=== PATIENT | male | born 1990 | race Hispanic/Latino ===

== ENCOUNTER 2024-03-06 19:17 | Emergency (ER) | payer SELFPAY ==
[2024-03-06 19:55] LABS: #Basophils 0.03 10x3/uL (0.0-0.2); #Eosinophils Less than 0.03 10x3/uL (0.0-0.7); %Basophils 0.3 % (0.0-1.0); %Lymphocytes 10.1 % (21.0-51.0); %Monocytes 5.5 % (0.0-10.0); %Neutrophils 83.8 % (42.0-75.0); Hematocrit 45.2 % (42.0-52.0); Hemoglobin 15.5 g/dL (14.0-18.0); Mean Corpuscular HGB CONC 34.3 g/dL (32.0-36.0); Mean Corpuscular Hemoglobin 29.7 pg (27.0-31.0); Mean Corpuscular Volume 86.6 fL (78.0-98.0); Mean Platelet Volume 10.4 fL (7.4-10.4); Platelet Count 261 10x3/uL (130-400); Red Blood Cell (RBC) Count 5.22 mill/uL (4.70-6.10)
[2024-03-06 20:15] LABS: ALT (SGPT) 23 U/L (8-55); AST (SGOT) 34 U/L (5-34); Acetaminophen Less than 10 mcg/mL (Less than 10); Albumin 4.4 g/dL (3.5-5.0); Alcohol Less than 10.0 mg/dL (Less than 10); Alkaline Phosphatase 81 U/L (40-110); Anion Gap 19 mmol/L (10-20); BUN (Urea Nitrogen) 16 mg/dL (8.9-20.6); Bilirubin, Total 0.8 mg/dL (0.2-1.2); Calc. Creatinine Clearance 0 mL/min (70-130); Calcium 9.9 mg/dL (7.8-10.44); Carbon Dioxide 21 mmol/L (22-29); Chloride 106 mmol/L (98-107); Estimated GFR 91; Globulin 3.9 g/dL (2.4-3.5); Glucose 84 mg/dL (70-105); Potassium 3.7 mmol/L (3.5-5.1); Protein, Total 8.3 g/dL (6.0-8.3); Salicylate Less than 8.0 mg/dL (Less than 8.0); Sodium 142 mmol/L (136-145)
[2024-03-06 23:06] LABS: Bilirubin Negative (Negative); Blood, Urine Negative (Negative); CAUTI Indications for Culture Pelvic or flank pain; Clarity Clear (Clear); Glucose, Urine (Dipstick) Normal (Negative); Ketone, Urine Greater than 150 mg/dL (Negative); Leukocyte Negative Leu/uL (Negative); Nitrite Negative (Negative); Protein, Urine (Dipstick) 100 mg/dL (Neg-Trace); Specific Gravity, Urine 1.038 (1.002-1.036); Urobilinogen Normal mg/dL (Less than 2); pH, Urine 5.5 (5.0-9.0)
[2024-03-06 23:13] LABS: Amphetamine Detected (NotDetected); Barbiturates Screen Not Detected (NotDetected); Benzodiazepine Screen Not Detected (NotDetected); Cocaine Metabolite Screen Detected (NotDetected); Methadone Not Detected (NotDetected); Methamphetamine Detected (NotDetected); Opiate Screen Not Detected (NotDetected); Oxycodone Screen Not Detected (NotDetected); Phencyclidine (PCP) Not Detected (NotDetected); THC/Cannabinoid Screen Not Detected (NotDetected); Tricyclic Screen Not Detected (NotDetected)
[2024-03-06 23:19] LABS: Bacteria/HPF Rare-Few HPF (None Seen); RBC/HPF 0-3 HPF (0-3); Sperm/HPF 1+ HPF (None Seen); Squamous Epithelial 0-3 HPF (0-3)
[2024-03-06 23:21] LABS: Urine Culture Reflex Yes Yes
== END 2024-03-07 00:41 | disposition home or self-care (01) ==
LOC: ERS 19:17
DX: F10.10 Alcohol abuse, uncomplicated (principal); F19.10 Other psychoactive substance abuse, uncomplicated
CPT/HCPCS: 36415; 80053; 80306; 80307; 81001; 83605; 85025; 87086; 93005; 99285